=== PATIENT | male | born 1975 | race Caucasian/White ===

== ENCOUNTER 2025-08-11 09:59 | Emergency (ER) | payer SELFPAY ==
[2025-08-11] MEDS ORDERED: Iopamidol 300 61% 100 ML VIAL FS ONE (10:42)
[2025-08-11] MEDS ORDERED: Ketorolac Tromethamine 30 MG (1 mL) VIAL ONE (11:10)
[2025-08-11 11:12] LABS: #Basophils Less than 0.03 10x3/uL (0.0-0.2); #Eosinophils 0.04 10x3/uL (0.0-0.5); #Monocytes 0.50 10x3/uL (0.0-1.1); #Neutrophils 8.35 10x3/uL (1.5-8.4); %Basophils 0.2 % (0.0-2.0); %Eosinophils 0.4 % (0.0-6.0); %Lymphocytes 9.1 % (18.0-47.0); %Monocytes 5.1 % (0.0-10.0); %Neutrophils 84.9 % (40.0-75.0); Hematocrit 36.7 % (38.8-50.0); Hemoglobin 12.8 g/dL (13.5-17.5); Mean Corpuscular Hemoglobin 30.0 pg (27.0-33.0); Mean Corpuscular Volume 85.9 fL (81.2-95.1); Platelet Count 316 10x3/uL (150-450); Red Blood Cell (RBC) Count 4.27 10x6/uL (4.32-5.72); White Blood Cell (WBC) Count 9.83 10x3/uL (3.5-10.5)
[2025-08-11 11:27] LABS: ALT (SGPT) 38 U/L (Less than 45); AST (SGOT) 32 U/L (11-34); Albumin 4.2 g/dL (3.1-4.5); Alkaline Phosphatase 96 U/L (40-110); Anion Gap 13 mmol/L (10-20); BUN (Urea Nitrogen) 16 mg/dL (8.9-20.6); Bilirubin, Total 0.5 mg/dL (0.3-1.2); Calc. Creatinine Clearance 0 mL/min (70-130); Calcium 8.7 mg/dL (7.8-10.44); Carbon Dioxide 23 mmol/L (22-29); Chloride 107 mmol/L (98-107); Globulin 3.4 g/dL (2.4-3.5); Glucose 110 mg/dL (70-105); Potassium 3.8 mmol/L (3.5-5.1); Sodium 139 mmol/L (136-145)
[2025-08-11] MEDS ORDERED: Acetaminophen 500 MG TAB ONE (16:55)
== END 2025-08-11 19:18 | disposition short-term general hospital (02) ==
LOC: CSHERS 09:59
DX: M27.8 Other specified diseases of jaws (principal); I10 Essential (primary) hypertension
CPT/HCPCS: 70487; 80053; 85025; 96374; 96375; J1885; J2543; Q9967